=== PATIENT | female | born 1995 | race Caucasian/White ===

== ENCOUNTER 2020-08-02 07:59 | Outpatient (CLI) | payer OTHER | END 2020-08-02 08:00 | disposition home or self-care (01) | LOC: TBSIIMAG 07:59 | PROVIDERS: ATTEND Orthopaedic Surgery | DX: M25.561 Pain in right knee (principal) ==

== ENCOUNTER 2020-10-12 05:52 | Day surgery (SDC) | payer BC ==
[2020-10-11 10:40] VITALS: BMI 45.1
[2020-10-12] MEDS ORDERED: Fentanyl 100 MCG/2 ML VIAL ONE ×2 (06:15→06:39)
[2020-10-12] MEDS ORDERED: Midazolam HCl 2 mg/2 ml Vial ONE ×2 (06:15→06:39)
[2020-10-12] MEDS ORDERED: PROPOFOL 200 MG/20 ML VIAL ONE (07:51)
[2020-10-12] MEDS ORDERED: Ondansetron PF 4 MG/2 ML Vial ONE (07:51)
[2020-10-12] MEDS ORDERED: Bupivacaine PF 0.5% 30 ML VIAL ONE (07:51)
[2020-10-12] MEDS ORDERED: Dexamethasone 20 MG/5 ML VIAL ONE (07:51)
[2020-10-12] MEDS ORDERED: Lidocaine 2% w/Epinephrine 1:200K 20 ML VIAL ONE (07:51)
== END 2020-10-12 11:00 | disposition home or self-care (01) ==
LOC: SDC 05:52
PROVIDERS: ATTEND Orthopaedic Surgery
PROC: 0SBC4ZZ Excision of Right Knee Joint, Percutaneous Endoscopic Approach (ICD-10-PCS; principal; 2020-10-12)
DX: M67.461 Ganglion, right knee (principal); S83.511A Sprain of anterior cruciate ligament of right knee, initial encounter; I10 Essential (primary) hypertension; E66.01 Morbid (severe) obesity due to excess calories; E28.2 Polycystic ovarian syndrome; Z68.42 Body mass index [BMI] 45.0-49.9, adult; X50.3XXA Overexertion from repetitive movements, initial encounter; Y93.66 Activity, soccer
CPT/HCPCS: J0690; J1100; J2250; J2405; J2704; J3010; S0020

== ENCOUNTER 2024-12-16 07:59 | Outpatient (CLI) | payer BC | END 2024-12-16 08:00 | disposition home or self-care (01) | LOC: BICRAD 07:59 | PROVIDERS: ATTEND Family Medicine | DX: M25.561 Pain in right knee (principal); M17.11 Unilateral primary osteoarthritis, right knee ==

== ENCOUNTER 2024-12-16 09:24 | Outpatient (CLI) | payer BC | END 2024-12-16 09:25 | disposition home or self-care (01) | LOC: MRI 09:24 | PROVIDERS: ATTEND Family Medicine | DX: S83.8X1A Sprain of other specified parts of right knee, initial encounter (principal); M67.462 Ganglion, left knee; M23.8X2 Other internal derangements of left knee ==